=== PATIENT | female | born 1955 | race Caucasian/White ===

== ENCOUNTER 2021-06-25 02:28 | Observation (INO) | payer MEDICARE, OTHER ==
[~2021-06-25] VITALS: Ht 160 cm; Wt 81.7 kg
[~2021-06-25 02:28] MED LIST: ASCO500 PO; BUSP10 PO; CALCA500CH PO; CIPR500 PO; CYAN1000 PO; ERGO400 PO; HYDACE5 PO; IBUP400; IBUP600 PO; NAPR220 PO; VITAMIN E400 UNI1 PO; Wellbutrin Sr200 MG PO
[2021-06-25 03:26] LABS: BASOPHILS ABSOLUTE AUTO 0.04 K/mm3 (0.00-0.23); BASOPHILS PERCENT AUTO 1 % (0-2); EOSINOPHILS ABSOLUTE AUTO 0.04 K/mm3 (0.00-0.68); EOSINOPHILS PERCENT AUTO 1 % (0-6); Hematocrit 40.1 % (33.0-51.0); Hemoglobin 13.2 g/dL (11.5-16.0); IMMATURE GRAN ABSOLUTE AUTO 0.03 K/mm3 (0.00-0.10); IMMATURE GRAN PERCENT AUTO 0 % (0-1); LYMPHOCYTES ABSOLUTE AUTO 0.87 K/mm3 (0.84-5.20); LYMPHOCYTES PERCENT AUTO 12 % (21-46); MONOCYTES ABSOLUTE AUTO 0.42 K/mm3 (0.16-1.47); MONOCYTES PERCENT AUTO 6 % (4-13); Mean Corpuscular HGB 29.3 pg (26.0-34.0); Mean Corpuscular HGB Conc 32.9 g/dL (31.5-36.5); Mean Corpuscular Volume 89 fL (80-100); Mean Platelet Volume 9.2 fL (9.1-12.4); NEUTROPHILS ABSOLUTE AUTO 6.02 K/mm3 (1.96-9.15); NEUTROPHILS PERCENT AUTO 81 % (41-73); Platelet Count 227 K/mm3 (150-400); RDW Coefficient Variation 12.9 % (11.7-14.2); RDW Standard Deviation 42.3 fL (35.1-46.3); Red Blood Cell Count 4.51 M/mm3 (3.80-5.20); White Blood Cell Count 7.42 K/mm3 (4.00-11.30)
[2021-06-25 03:40] LABS: Source, Urine Clean Catch
[2021-06-25 03:43] LABS: Bilirubin, Urine Neg (Neg); Blood, Urine 1+ (Neg); Glucose Qualitative, Urine Neg (Neg); Ketones, Urine 3+ (Neg); Leukocyte Esterase, Urine Neg (Neg); Nitrite, Urine Neg (Neg); Protein, Urine Neg (Neg); Urobilinogen, Urine NORM (Normal); pH, Urine 6.5 (5.0-8.0)
[2021-06-25 03:47] LABS: Alanine Aminotransfer (ALT/SGP 25 U/L (12-78); Albumin, Blood 3.3 g/dL (3.4-5.0); Alk Phos 86 U/L (50-136); Anion Gap 8 mmol/L (6-16); Aspartate Aminotrans (AST/SGOT 16 U/L (12-37); Bilirubin, Total 0.4 mg/dL (0.1-1.0); Blood Urea Nitrogen 29 mg/dL (8-24); Bun/Creatinine Ratio 31.8 (12.0-20.0); CO2, Blood 26 mmol/L (21-32); Chloride, Blood 110 mmol/L (98-108); Creatinine, Blood 0.91 mg/dL (0.40-1.00); Globulin, Blood 3.4 g/dL (2.2-4.0); Glomerular Filtration Rate >60 (60-); Glucose, Blood 137 mg/dL (70-99); Potassium, Blood 3.4 mmol/L (3.5-5.5); Sodium, Blood 144 mmol/L (136-145); Total Protein, Blood 6.7 g/dL (6.4-8.2); Troponin I <0.015 ng/mL (0.000-0.040)
[2021-06-25 04:00] LABS: Appearance, Urine Hazy (Clear); Color, Urine Yellow (P-Yellow)
[2021-06-25 04:01] LABS: Bacteria Rare /hpf; Red Blood Cells, Urine 0-2 /hpf (0-2); Squamous Epithelial Cells Rare /hpf (Few); White Blood Cells, Urine Not Seen /hpf (0-5)
[2021-06-25 07:07] LABS: Influenza A, PCR NEGATIVE (NEGATIVE); Influenza B, PCR NEGATIVE (NEGATIVE); Resp Syncytial Virus, PCR NEGATIVE (NEGATIVE); SARS-Cov-2 (COVID-19) PCR, MMC NEGATIVE (NEGATIVE)
--- NOTE | 2021-06-25 10:49 | NUR ---
Ambulatory in [facility] warming gown applied. Surgical site prepped with 2% Chlorhexidine cloth wipe. History, Chart, Medications and Allergies reviewed before start of procedure.Lungs clear T/O to Auscultation. Patient confirms NPO status and agrees with scheduled surgery. Pre-Op teaching done. Pt verbalizes understanding. Patient States Post-Procedure ride home has been arranged.
--- NOTE | 2021-06-25 16:17 | NUR ---
SHIFT SUMMARY PT A&OX4, VSS/RA, S/P LAP RENEE, 4 LAP STERI STRIPS DRY/INTACT. SHAUNA PO. VOIDING. PAIN MANAGED WITH 5 MG OXY/TORADOL. AMB SBA TO BRP, REPOSITIONS SELF WELL IN BED. WILL REPORT TO ONCOMING NOC RN.
--- NOTE | 2021-06-26 05:31 | NUR ---
ALERT AND ORIENTED X'4. MEDICATED DUE TO ABDOMINAL PAIN THROUGH NIGHT, EFFECTIVE REIEF. BOWEL SOUNDS PRESENT IN ALL FOUR QUADRANTS. STERI STRIPS INTACT TO ABDOMEN. SLEPT WELL THROUGH NIGHT. SAFETY MAINTAINED, CALL BEL IN REACH.
[2021-06-26] MEDS ORDERED: OXYC5 PO (11:05)
--- NOTE | 2021-06-26 12:20 | NUR ---
PT WANTS TO GO HOME, DR. CHRISTIANSON NOTIFIED, OK'D TO DC HOME, DC INSTRUCTIONS GIVEN, VERBALIZED UNDERSTANDING, PT WAITING FOR RIDE HOME.
== END 2021-06-26 13:34 | disposition home or self-care (01) ==
LOC: ER 02:28 → ERHOLD 02:29 → ER 04:22 → SURS 12:39
PROVIDERS: Emergency Medicine; ADMIT Surgery
PROC: BF00YZZ Plain Radiography of Bile Ducts using Other Contrast (ICD-10-PCS; principal; 2021-06-25 10:30)
PROC: 0FT44ZZ Resection of Gallbladder, Percutaneous Endoscopic Approach (ICD-10-PCS; principal; 2021-06-25 10:30)
DX: K80.13 Calculus of gallbladder with acute and chronic cholecystitis with obstruction (principal); I10 Essential (primary) hypertension; Z20.822 Contact with and (suspected) exposure to COVID-19
CPT/HCPCS: 0241U; 76705; 80053; 81001; 83690; 84484; 85025; 93005; 93010; 99285-25; A9270; C1729; C1894; J1100; J1170; J1885; J2250; J2405; J2543; J2550; J2704; J2765; J3010; J7030; J7120

== ENCOUNTER 2024-06-11 08:01 | Day surgery (SDC) | payer MEDICARE ==
[~2024-06-11] VITALS: Ht 152.4 cm; Wt 82.4 kg
[~2024-06-11 08:01] MED LIST changes: +OXYC5 PO
[2024-06-11] MEDS ORDERED: Lactated Ringer's 1,000 ML IV ONE ×2 (08:12→08:51)
[2024-06-11] MEDS ORDERED: propofoL 50 ML IV ONE (08:12)
[2024-06-11] MEDS ORDERED: [UNRECOGNIZED DRUG - OTHER] (08:20)
[2024-06-11] MEDS ORDERED: LOSA25 (08:23)
[2024-06-11] MEDS ORDERED: Aspir 8181 MG PO (08:23)
[2024-06-11] MEDS ORDERED: Vitamin B-12100 MCG (08:24)
[2024-06-11] MEDS ORDERED: ERGO400 (08:24)
[2024-06-11] MEDS ORDERED: Vitamin C100 M1 (08:24)
[2024-06-11] MEDS ORDERED: Ondansetron HCl 2 MG / ML 2ML Vial ONE (10:13)
[2024-06-11 10:49] VITALS: BP 127/68
== END 2024-06-11 10:52 | disposition home or self-care (01) ==
LOC: ORSCSDS 08:01
PROVIDERS: Surgery
PROC: 0DJD8ZZ Inspection of Lower Intestinal Tract, Via Natural or Artificial Opening Endoscopic (ICD-10-PCS; principal; 2024-06-11 09:30)
DX: Z12.11 Encounter for screening for malignant neoplasm of colon (principal); Z83.719 Family history of colon polyps, unspecified; K57.30 Diverticulosis of large intestine without perforation or abscess without bleeding; I10 Essential (primary) hypertension; F41.9 Anxiety disorder, unspecified; F32.A Depression, unspecified; Z79.82 Long term (current) use of aspirin; Z79.899 Other long term (current) drug therapy
CPT/HCPCS: J2405; J2704; J7120